=== PATIENT | male | born 1965 | race Caucasian/White ===

== ENCOUNTER → 2024-09-11 14:08 | Outpatient (REF) | payer OTHER, SELFPAY ==
[2024-09-12 18:50] LABS: PSA Total 1.1 ng/mL (0.0-4.0)
== END ==
LOC: OIDL 14:08
PROVIDERS: ATTENDING PHYSICIAN Family Medicine
DX: R97.20 Elevated prostate specific antigen [PSA] (principal)
CPT/HCPCS: 36415; 84153; 84154